=== PATIENT | male | born 1995 | race African-American/Black ===

== ENCOUNTER 2016-11-24 16:49 | Emergency (ER) | payer OTHER, BC ==
--- NOTE | 2016-11-24 17:17 | EDM.PDOC ---
ED HPI GENERAL MEDICAL PROBLEM - General Chief Complaint: Laceration Stated Complaint: nose laceration Time Seen by Provider: 11/24/16 17:07 Source of Information: Reports: Patient History Limitations: Reports: No Limitations - History of Present Illness INITIAL COMMENTS - FREE TEXT/NARRATIVE: Patient was at work and fell hitting his nose on a cement block. He has no complaints stating that this did happen 3 hours ago. Significant other wanted him looked at. This is a worker's compensation claim. He has no complaints. No LOC, no headache, no chest pain. Not actively bleeding. Onset: Today, Sudden Location: Reports: Head, Face Front/Back Body Image: 1 - slight abrasion 2 - superior forehead superficial laceration of 0.5 cm 3 - 1 cm laceration/skin tear to right nasal bridge, Severity: Mild Improves with: Reports: None Worsens with: Reports: None Associated Symptoms: Reports: No Other Symptoms ED ROS GENERAL - Review of Systems Review Of Systems: See Below Constitutional: Reports: No Symptoms HEENT: Reports: No Symptoms Respiratory: Reports: No Symptoms Cardiovascular: Reports: No Symptoms Endocrine: Reports: No Symptoms GI/Abdominal: Reports: No Symptoms : Reports: No Symptoms Musculoskeletal: Reports: No Symptoms Skin: Reports: Wound Neurological: Reports: No Symptoms Psychiatric: Reports: No Symptoms Hematologic/Lymphatic: Reports: No Symptoms Immunologic: Reports: No Symptoms ED EXAM, SKIN/RASH Exam: See Below Exam Limited By: No Limitations General Appearance: Alert, WD/WN, No Apparent Distress Nose: Other (1.0 cm skin tear/laceration to the nasal bridge on the right side. Already clotted, cleaned and dressed) Throat/Mouth: Normal Teeth, Normal Oropharynx Head: Normocephalic, Other (superior forehead with 0.5 cm skin tear/laceration. Superficial, right at hairline. no longer actively bleeding.) Respiratory/Chest: No Respiratory Distress, No Accessory Muscle Use, Chest Non- Tender Neurological: Alert, Oriented, CN II-XII Intact, Normal Cognition, Normal Gait, Normal Reflexes, No Motor/Sensory Deficits Psychiatric: Normal Affect, Normal Mood Skin: Wound/Incision Location, Skin: Face (nose, superior forehead near the hairline, anterior forehead scrape/abrasion) Departure - Departure Time of Disposition: 17:23 Disposition: Home, Self-Care 01 Condition: Good Clinical Impression: Laceration of nose - Discharge Information Instructions: Laceration Care, Adult, [id number], Wound Infection, Easy-to- Read Forms: ED Department Discharge Additional Instructions: Keep your wound clean and dry. Watch for signs of infection which can include temperature of over 101.5F, pus like drainage from the wound, red streak going away from the wound, increased swelling, heat, or tenderness. These symptoms can also be found in the education packet sent home with you. Please follow up with your primary doctor as needed for additional symptoms. Please call with any questions or concerns. - Problem List & Annotations (1) Laceration of nose SNOMED Code(s): 552269010 Code(s): S01.21XA - LACERATION WITHOUT FOREIGN BODY OF NOSE, INITIAL ENCOUNTER Status: Acute Priority: Low Qualifiers: Encounter type: initial encounter Qualified Code(s): S01.21XA - Laceration without foreign body of nose, initial encounter - Assessment/Plan Assessment:: laceration of nose, right side Plan: Keep your wound clean and dry. Watch for signs of infection which can include temperature of over 101.5F, pus like drainage from the wound, red streak going away from the wound, increased swelling, heat, or tenderness. These symptoms can also be found in the education packet sent home with you. Please follow up with your primary doctor as needed for additional symptoms. Please call with any questions or concerns.
[2016-11-24 17:36] VITALS: BP 130/78
== END 2016-11-24 17:25 | disposition home or self-care (01) ==
LOC: VM.ED 16:49
DX: S01.21XA Laceration without foreign body of nose, initial encounter (principal); S01.81XA Laceration without foreign body of other part of head, initial encounter; W01.198A Fall on same level from slipping, tripping and stumbling with subsequent striking against other object, initial encounter; Y92.69 Other specified industrial and construction area as the place of occurrence of the external cause; Y99.0 Civilian activity done for income or pay
CPT/HCPCS: 99282

== ENCOUNTER 2018-07-25 17:31 | Emergency (ER) | payer BC, OTHER ==
[2018-07-25] MEDS ORDERED: Azithromycin 250 MG Tab PO ONE (18:12)
[2018-07-25] MEDS ORDERED: cefTRIAXone 1 GM Vial IM ONE (18:12)
--- NOTE | 2018-07-25 18:19 | EDM.PDOC ---
ED HPI GENERAL MEDICAL PROBLEM - General Stated Complaint: BURNING WHEN URINATING Time Seen by Provider: 07/25/18 18:00 Source of Information: Reports: Patient History Limitations: Reports: No Limitations - History of Present Illness INITIAL COMMENTS - FREE TEXT/NARRATIVE: 23-year-old -[place] male with chief complaint of questionable STD says it feels like he is burning every time he please white razors or cutting the inside of his penis he said it hurt so bad to urinate now he does not want to he said this has been going on since Wednesday last unprotected sex was [id number] He said he now has a thick white yellowish looking discharge that drips out of his penis and states is very painful he says this is about the third time he has had it over the last couple years he usually just gets a shot and goes home he denies any nausea vomiting fever or back pain genital pain no rashes no blisters he has not followed up with primary care provider or health department Duration: Getting Worse Associated Symptoms: Denies: Loss of Appetite, Malaise, Nausea/Vomiting, Shortness of Breath, Weakness Treatments CLEAN UP HELPER BANQUET: Reports: Other (see below) (None) - Related Data Allergies Allergy/AdvReac Type Severity Reaction Status Date / Time No Known Allergies Allergy Verified 11/24/16 17:23 Home Meds: Home Meds . [No Known Home Meds] 11/24/16 [History] Past Medical History - Past Health History Medical/Surgical History: Denies Medical/Surgical History ED ROS GENERAL - Review of Systems Review Of Systems: See Below Constitutional: Denies: Fever, Chills, Malaise, Weakness, Fatigue, Weight Loss HEENT: Reports: No Symptoms Respiratory: Reports: No Symptoms Cardiovascular: Reports: No Symptoms GI/Abdominal: Reports: No Symptoms. Denies: Nausea, Vomiting : Reports: Discharge, Dysuria, Frequency, Urgency. Denies: Flank Pain, Urinary Retention Musculoskeletal: Denies: Neck Pain Skin: Reports: No Symptoms Neurological: Reports: No Symptoms Hematologic/Lymphatic: Reports: No Symptoms ED EXAM, GENERAL - Physical Exam Exam: See Below Exam Limited By: No Limitations General Appearance: Alert, WD/WN, No Apparent Distress, Anxious Throat/Mouth: Normal Inspection, Normal Lips, Normal Teeth, Normal Gums, Normal Oropharynx Neck: Normal Inspection, Non-Tender, Full Range of Motion. No: Limited Range of Motion, Lymphadenopathy (L), Lymphadenopathy (R) Respiratory/Chest: No Respiratory Distress, Lungs Clear, Normal Breath Sounds, No Accessory Muscle Use Cardiovascular: Normal Peripheral Pulses, Regular Rate, Rhythm, No Murmur GI/Abdominal: Normal Bowel Sounds, Soft, Non-Tender, No Organomegaly. No: Guarding, Rigid (Male) Exam: Inguinal Lymphadenopathy, Other (Patient had bilateral inguinal lymphadenopathy there was noted creamy whitish discharge from the urethra of the penis there was no pain or swelling to the testicles there are no vesicular crustaceans /lesions noted). No: Rash, Scrotal Swelling, Scrotum Tenderness (L ), Scrotum Tenderness (R), Testicular Tenderness (L) Extremities: Normal Inspection, Normal Range of Motion Neurological: Alert, Oriented, CN II-XII Intact, Normal Cognition, Normal Gait Psychiatric: Normal Mood Skin Exam: Warm, Dry, Intact, Normal Color, No Rash Lymphatic: Adenopathy Course - Orders/Labs/Meds Orders: Active Orders 24 hr Category Date Time Status CULTURE HERPES SIMPLEX VIRUS [MREF] Urgent Lab 07/25/18 18:09 Ordered GC CULTURE [MREF] Stat Lab 07/25/18 18:09 Ordered Meds: Medications Discontinued Medications Generic Name Dose Route Start Last Admin Trade Name Freq PRN Reason Stop Dose Admin Azithromycin 1,000 mg 07/25/18 18:12 Zithromax PO 07/25/18 18:13 ONETIME ONE Ceftriaxone Sodium 1 gm 07/25/18 18:12 Rocephin IM 07/25/18 18:13 ONETIME ONE - Re-Assessments/Exams Free Text/Narrative Re-Assessment/Exam: 07/25/18 18:19 GC and chlamydia swabs were ordered along with a HSV culture 1 g Rocephin IM was given 1 g Zithromax po and instructed to follow-up with health Department for further testing for syphilis and HIV patient is verbal understanding that he will follow up in [place] at their health Department secondary to that is were he works at Departure - Departure Time of Disposition: 18:15 Disposition: Home, Self-Care 01 Clinical Impression: STD (sexually transmitted disease) - Discharge Information *PRESCRIPTION DRUG MONITORING PROGRAM REVIEWED*: No *COPY OF PRESCRIPTION DRUG MONITORING REPORT IN PATIENT BEATRIS: No - Problem List & Annotations (1) STD (sexually transmitted disease) SNOMED Code(s): 8169356 Code(s): A64 - UNSPECIFIED SEXUALLY TRANSMITTED DISEASE Status: Acute - My Orders Last 24 Hours: My Active Orders 07/25/18 18:09 CULTURE HERPES SIMPLEX VIRUS [MREF] Urgent GC CULTURE [MREF] Stat - Assessment/Plan Last 24 Hours: My Active Orders 07/25/18 18:09 CULTURE HERPES SIMPLEX VIRUS [MREF] Urgent GC CULTURE [MREF] Stat Plan: Medications were given as stated in the chart patient understands need follow- up at [facility]
[2018-07-25] MEDS ORDERED: Lidocaine 1% 2 ML ONE (18:23)
[2018-07-25 18:42] VITALS: BP 138/88
== END 2018-07-25 18:50 | disposition home or self-care (01) ==
LOC: VM.ED 17:31
DX: A64 Unspecified sexually transmitted disease (principal)
CPT/HCPCS: 87529; 96372; 99283; A9270; J0696; J2001; 87491; 87591